=== PATIENT | male | born 1970 | race Hispanic/Latino ===

== ENCOUNTER 2018-05-06 08:19 | Day surgery (SDC) | payer OTHER ==
[2018-05-05 13:02] LABS: APPEARANCE,URINE Clear (CLEAR); BILIRUBIN,URINE Negative (NEGATIVE); COLOR,URINE Yellow (YELLOW); GLUCOSE, URINE (UA) Negative (NEGATIVE); KETONES,URINE Negative (NEGATIVE); LEUKOCYTE ESTERASE ,URINE Negative (NEGATIVE); NITRATE,URINE Negative (NEGATIVE); OCCULT BLOOD,URINE Negative (NEGATIVE); PH,URINE 5.5 (5.0-8.0); PROTEIN,URINE Negative (NEGATIVE); UROBILINOGEN,URINE 0.2 mg/dL (0.2-1.0)
[2018-05-05 13:07] LABS: BASOPHILS % (AUTO) 0.9 % (0.0-5.0); EOSINOPHILS % (AUTO) 9.2 % (0.0-8.0); MEAN CORPUSCULAR HEMOGLOBIN 29.3 pg (27.0-33.0); MEAN CORPUSCULAR HGB CONC 34.1 g/dL (32.0-36.0); MONOCYTES % (AUTO) 8.8 % (3.0-13.0); NEUTROPHILS % (AUTO) 44.1 % (40.0-77.0); NUCLEATED RED BLOOD CELLS 0.1 % (0.0-0.19); PLATELET COUNT (AUTO) 160 K/uL (130-400); RED BLOOD CELL COUNT(AUTO) 5.47 MIL/uL (4.50-6.20); RED CELL DISTRIBUTION WIDTH 13.5 % (11.0-15.5)
[2018-05-05 13:51] VITALS: BP 114/80
[~2018-05-06] VITALS: Ht 170.2 cm; Wt 86.2 kg
[2018-05-06] VITALS (18 sets, daily range): BP systolic 108–129; BP diastolic 70–80
[2018-05-06] MEDS ORDERED: LACTATED RINGERS 1000ML 1,000 ML IV ONE (08:35)
[2018-05-06] MEDS ORDERED: LIDOCAINE PF 2% 5ML ABBOJECT ONE (08:56)
[2018-05-06] MEDS ORDERED: ROPIVACAINE 0.5% 5MG/ML 30ML IJ ONE ×2 (08:56→09:06)
[2018-05-06] MEDS ORDERED: ROCURONIUM 10MG/1ML SYR 10 MG/ML ML ONE (08:57)
[2018-05-06] MEDS ORDERED: MIDAZOLAM HCL 1 MG/ML 2ML VIAL ONE (08:57)
[2018-05-06] MEDS ORDERED: PROPOFOL 10 MG/ML 20ML VIAL IV ONE (08:57)
[2018-05-06] MEDS ORDERED: ONDANSETRON HCL 4 MG/2 ML VIAL ONE (08:57)
[2018-05-06] MEDS ORDERED: FENTANYL CITRATE PF 50 MCG/1 ML 2ML VIAL ONE (08:58)
[2018-05-06] MEDS ORDERED: DEXAMETHASONE SOD PHOSPHATE 10MG/ML 1ML VIAL ONE (09:08)
[2018-05-06] MEDS ORDERED: GLYCOPYRROLATE 1 MG/5 ML SYRINGE ONE (10:05)
[2018-05-06] MEDS ORDERED: EPHEDRINE SULFATE 50 MG/ML AMPULE ONE (10:06)
[2018-05-06] MEDS ORDERED: NEOSTIGMINE 5MG/5ML SYR IV ONE (10:35)
[2018-05-06] MEDS ORDERED: KETOROLAC TROMETHAMINE 30MG/ML ONE (11:00)
[2018-05-06] MEDS ORDERED: MEPERIDINE-PF 25 MG/ML SYG ONE ×2 (11:12→11:23)
== END 2018-05-06 13:50 | disposition home or self-care (01) ==
LOC: DAH 08:19
PROVIDERS: ATTEND Surgery
DX: K40.90 Unilateral inguinal hernia, without obstruction or gangrene, not specified as recurrent (principal)
CPT/HCPCS: 36415; 49505; 81003; 85025; A4450; A4452; C1729; C1781; J1100; J1885; J2001; J2175 ×2; J2250; J2405; J2704; J2710; J2795 ×2; J3010; J3490 ×2; J7120